=== PATIENT | female | born 1995 | race Caucasian/White ===

== ENCOUNTER 2024-06-15 16:35 | Outpatient (AMB) | payer OTHER, SELFPAY ==
[2024-06-15 16:42] VITALS: BP 94/64; PULSE 82; RESP 16; TEMP 36.5; O2SAT 97; BMI 29.7
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
--- OUTSIDE RECORDS SUMMARY | 2024-06-15 17:04 | XMS_ITS | Clinical Summary ---
Author Organization [facility] it Address [address] [place] [address] Care Team Providers Care Coding Advisor Name Role Phone Unavailable Primary Care Provider Unavailabl e Social History Tobacco Use Types Packs/Day Years Used Date Smoking Tobacco: Never Assessed Comments Unknown Sex and Gender Information Value Date Recorded Sex Assigned at Not on file Legal Sex Female 9:41 PM EST Gender Identity Not on file Sexual Orientation Not on file Plan of Treatment Health Maintenance Due Date Last Done Comments HPV Vaccines (1 - 3-dose series) 2012 DTaP,Tdap,and Td Vaccines (1 - Tdap) 2016 Hepatitis B Vaccines (1 of 3 - 19+ 3-dose series) 2016 Cervical Cancer Screening: P ap Smear 2018 COVID-19 Vaccine ( - 2023-2 5 season) 2023 Influenza Vaccine (#1) 2023 Depression Screening 12/22/2023 HIV Screening 12/22/2023 Hepatitis C Screening 12/22/2023 Social Influencers of Health Screening 12/22/2023 HIB Vaccines Aged Out No longer eligi ble based on patient's age to complete this topic Hepatitis A Vaccines Aged Out No long er eligible based on patient's age to complete this topic IPV Vaccines Aged Out No longer eligi ble based on patient's age to complete this topic MMR Vaccines Aged Out No longer eligi ble based on patient's age to complete this topic Meningococcal ACWY Vaccine Aged Out N o longer eligible based on patient's age to complete this topic Meningococcal B Vacine Aged Out No lo nger eligible based on patient's age to complete this topic Pneumococcal Vaccine: Pediat rics (0 to 5 Years) and At-Risk Patients (6 to 64 Years) Aged Out No longer eligible b ased on patient's age to complete this topic RSV Immunization Patients Un alice 20 months Aged Out No longer eligible b ased on patient's age to complete this topic Varicella Vaccines Aged Out No longer eligible based on patient's age to complete this topic
== END 2024-06-15 17:21 | disposition home or self-care (01) ==
DX: F41.9 Anxiety disorder, unspecified (principal); F41.0 Panic disorder [episodic paroxysmal anxiety]

== ENCOUNTER → 2024-06-15 16:35 | Outpatient (BNVA) | payer OTHER, SELFPAY | DX: F41.9 Anxiety disorder, unspecified (principal); F41.0 Panic disorder [episodic paroxysmal anxiety] | CPT/HCPCS: 96127; 99202 ==

== ENCOUNTER 2024-06-18 10:25 | Outpatient (REF) | payer OTHER, SELFPAY ==
--- OUTSIDE RECORDS SUMMARY | 2024-06-18 12:15 | XMS_ITS | Clinical Summary ---
Author Organization [facility] it Address [address] [place] [address] Care Team Providers Care Merchant Mariner Name Role Phone Unavailable Primary Care Provider [...] Vaccine ( - 2023-2 5 season) 2023 Depression Screening 12/22/2023 HIV Screening 12/22/2023 Hepatitis C Screening 12/22/2023 Social Influencers of Health Screening 12/22/2023 Influenza Vaccine (Season Ended) 2024 HIB Vaccines Aged Out No longer eligi [...]
[2024-06-18 13:05] LABS: MANUAL DIFF FLAG NO
[2024-06-18 13:20] LABS: Basophils Percent Auto 0.5 % (0-2); Eosinophils Absolute Auto 0.1 X10*3/uL (0.0-0.4); Hematocrit 39.9 % (37.0-47.0); Hemoglobin 13.6 g/dl (12.0-16.0); Imm Gran Abs Auto 0.04 X10*3/uL (0.00-0.03); Imm Gran Pct Auto 0.6 % (0.0-0.4); Lymphocytes Absolute Auto 1.9 X10*3/uL (1.2-4.9); Lymphocytes Percent Auto 29.7 % (20-40); Mean Corpuscular HGB Conc 34.1 g/dl (31.0-35.0); Mean Corpuscular Hemoglobin 27.8 pg (27.0-33.0); Mean Corpuscular Volume 81.6 fL (80.0-98.0); Monocytes Absolute Auto 0.6 X10*3/uL (0.1-1.2); Monocytes Percent Auto 8.8 % (2-11); Neutrophils Absolute Auto 3.7 x10*3/uL (2.0-8.3); Neutrophils Percent Auto 58.4 % (45-73); Platelet Count 175 X10*3/uL (160-400); Red Blood Count 4.89 X10*6/uL (4.20-5.50); Red Cell Distribution Width 13.4 % (11.0-16.0); White Blood Count 6.4 X10*3/uL (4.8-10.8)
[2024-06-18 13:24] LABS: Appearance Urine Turbid; Color Urine Yellow; Glucose Urine UA Negative (Negative); Leukocyte Esterase Urine Negative (Negative); Nitrite Urine Negative (Negative); PH 5.5 (5.0-9.0); Specific Gravity - Urine >= 1.030 (1.005-1.025); Urine Blood Negative (Negative); Urine Ketones Trace mg/dL (Negative); Urine Protein Negative (Neg-Trace)
[2024-06-18 14:11] LABS: Alanine Aminotransferase 14 U/L (0-31); Albumin Level 4.7 g/dL (3.5-5.0); Alkaline Phosphatase 65 U/L (39-117); Anion Gap 13 (12-20); Aspartate Amino Transferase 26 U/L (5-31); Bilirubin Total 0.6 mg/dL (0.0-1.0); Blood Urea Nitrogen 10 mg/dL (9-16); Calcium 9.7 mg/dL (8.4-10.2); Carbon Dioxide 25 mmol/L (22-29); Chloride 107 mmol/L (96-108); Cholesterol 159 mg/dL (<200); Estimated Glomerular Filt Rate > 60; Glucose Fasting 89 mg/dL (60-99); HDL Cholesterol 51 mg/dL (>40); LDL Cholesterol Calculated 94 mg/dL (<100); Sodium 141 mmol/L (135-145); TSH reflex Free T4 2.15 uIU/mL (0.32-4.0); Total Protein 7.7 g/dL (6.5-8.0); Triglycerides 72 mg/dL (<150); Vitamin D 25-OH Total 59.5 ng/mL (>30)
== END 2024-06-18 10:26 | disposition home or self-care (01) ==
LOC: HO.HMGCLDS 10:25
DX: Z00.00 Encounter for general adult medical examination without abnormal findings (principal)
CPT/HCPCS: 36415; 80053; 80061; 81003; 82306; 84443; 85025

== ENCOUNTER 2024-07-27 15:29 | Outpatient (AMB) | payer OTHER, SELFPAY ==
[2024-07-27 15:35] VITALS: BP 110/72; PULSE 89; RESP 16; TEMP 37.2; O2SAT 98; BMI 29.6
--- NOTE | 2024-07-27 15:35 | A.OFFPC_ITS ---
Vital Signs 07/27/24 15:35 Height 4 ft 11 in Weight 146 lb 9.6 oz BMI 29.6 BP 110/72 Blood Pressure Location Lt brachial Position Sitting Respiration 16 Pulse 89 Pulse Source Pulse Oximeter Temp 99.0 F Temp Source Oral Pulse Oximetry (%) 98 Oxygen Delivery Method Room Air Intake Visit Reasons: 6 week follow up Health Support Specialist Required: No Accompanied by: Self / Same As Patient Allergies No Known Allergies Allergy (Verified 07/27/24 16:02) Medication List - Last Reconciled 07/27/24 by MYA Kolb sertraline 25 mg PO DAILY Tobacco use date assessed: 07/27/24 Dental Screening Dental Screen Date: 07/27/24 Did you have a dental visit in the last 12 months?: Yes Did you have a dental problem in the last 6 months where you did not have access to dental care?: No Was dental information given to patient?: Patient has dentist HPI 6 week follow up HPI Details The patient is a 28-year-old female with the anxiety presenting six week follow up this started treatment. Last visit the patient was started on sertraline 25 mg daily. Patient reports that the medication has been helping her but she thinks that is too much that she has been increasingly tired and finds herself napping during the daytime. Patient also request topical cream for her ongoing acne. Otherwise from that she is feeling much better than she did before. Denies chest pain, shortness of breath, heart palpitation, or recent panic attacks. Recent labs were reviewed with the patient. [facility] Medical History Severe preeclampsia Surgical History Hx of section Family History Daughter Age: 2y 11m No problems noted. Mother No problems noted. Father No problems noted. Social History Household Members: Children Housing: Apartment Alcohol intake: never Patient Tobacco Use Status: Never used Tobacco e-Cigarette/Vaping Use: Never Used Second Hand Smoke Exposure: No service: No Current occupational status: employed Current occupation: Background checks Cognitive needs: No Hearing needs: No Vision needs: Yes (Glasses) Female Reproductive History Menstrual Age of Menarche: 12 Duration of menses: 3-5 days Date of last menstrual period: 07/06/24 Questionnaire PHQ-9 Over the last 2 weeks, how often have you been bothered by any of the following problems? 1. Little interest or pleasure in doing things: not at all 2. Feeling down, depressed, or hopeless: not at all 3. Trouble falling or staying asleep, or sleeping too much: nearly every day 4. Feeling tired or having little energy: nearly every day 5. Poor appetite or overeating: not at all 6. Feeling bad about yourself - or that you are a failure or have let yourself or your family down: not at all 7. Trouble concentrating on things, such as reading the newspaper or watching television: not at all 8. Moving or speaking so slowly that other people could have noticed. Or the opposite - being so fidgety or restless that you have been moving around a lot more than usual: not at all 9. Thoughts that you would be better off or of hurting yourself in some way: not at all Total score: 6 Depression Screening Interpretation: Positive Depression Screening Done: Yes Source: Developed by Drs. Edson Shipley, Radha Chi, Solo Gill and colleagues, with an educational santy from [employer]. Thrive Questionnaire Date Thrive assessed: 07/27/24 I am a: Patient What is your living situation today?: I have a steady place to live Within the past 12 months, did the food you bought not last and you didn't have the money to get more?: I choose not to answer this question Within the past 12 months, did you worry whether your food would run out before you got money to buy more?: I choose not to answer this question Do you have trouble paying for medicines?: I choose not to answer this question Do you have trouble getting transportation to medical appointments?: I choose not to answer this question Do you have trouble paying your heating and electricity bill?: I choose not to answer this question Do you have trouble taking care of your child, family member or friend?: No Do you have trouble with day-to-day activities such as bathing, preparing meals, shopping, managing finances, etc.?: No Are you currently unemployed and looking for a job?: No Are you interested in more education?: I choose not to answer this question Please select the resources that you would like help with: None Currently or been in a relationship where the following occur: I choose not to answer THRIVE Score: 0 AUDIT C Alcohol Use Questionnaire (AUDIT-C) 1. How often do you have a drink containing alcohol?: Never Total Score: 0 Score Reviewed/Action Taken: No JULISSA-7 AMB Questionnaire JULISSA-7 Date JULISSA - 7 assessed: 07/27/24 Feeling nervous, anxious, or on edge: 1 = Several days Not being able to stop or control worryin = Not at all Worrying too much about different things: 0 = Not at all Trouble relaxin = Not at all Being so restless that it is hard to sit still: 0 = Not at all Becoming easily annoyed or irritable: 0 = Not at all Feeling afraid as if something awful might happen: 0 = Not at all Total JULISSA-7 score (0-4 normal; 5-9 mild; 10-14 moderate; 15-21 severe): 1 Source: Developed by Drs. Edson Shipley, Radha Chi, Solo Gill and colleagues, with an educational santy from [employer]. Review of Systems Const Denies headache(s) Eyes Denies loss of vision ENT Denies vertigo, Denies dizziness, Denies headache(s) and Denies sore throat Card Denies chest pain, Denies leg edema and Denies lightheadedness Resp Denies cough, Denies hemoptysis and Denies wheezing Neuro Reports Abnormal speech present, Denies vertigo, Denies dizziness, Denies headache(s) and Denies loss of vision Psych Reports anxiety (Improved), Denies depression and Denies panic attacks Domingo/Lymph Denies easy bleeding and Denies easy bruising Aller/Immun Denies wheezing Physical exam (Primary Care) Vital Signs: Last Vital Signs Temp 99.0 F 07/27/24 15:35 Pulse 89 07/27/24 15:35 Resp 16 07/27/24 15:35 BP 110/72 07/27/24 15:35 Pulse Ox 98 07/27/24 15:35 Oxygen Delivery Method Room Air 07/27/24 15:35 BMI result Body Mass Index 29.6 Tobacco/Smoking Status: Tobacco use Status Tobacco use date assessed 07/27/24 07/27/24 15:45 Patient Tobacco Use Status Never used Tobacco 07/27/24 15:45 e-Cigarette/Vaping Use Never Used 07/27/24 15:45 PHQ-9: PHQ-9 Score PHQ-9: Total score 6 07/27/24 16:15 Depression Screening Interpretation: Positive Thrive Assessment: Date of Thrive Assessment Date Thrive assessed 07/27/24 07/27/24 15:45 Currently or been in a relationship where the following occur: I choose not to answer Const General: healthy appearing, no acute distress, alert and awake Nutritional Appearance: well nourished Orientation/consciousness: oriented to person, oriented to place and oriented to time HENMT Ears: TM's normal bilaterally General nose exam: Normal nasal mucous membranes and turbinates present Eyes Conjunctivae: conjunctivae normal Sclerae: sclerae normal Pupils: Equal, round and reactive pupils present Neck Neck: Yes no lymphadenopathy and Yes no JVD Thyroid: Thyroid normal Carotids: no bruits Resp Effort & Inspection: normal respiratory effort and not tachypneic Auscultation: no crackles, no rales, no rhonchi and no wheezes Cardio Rate: regular rate Rhythm: regular rhythm Heart sounds: no murmurs and normal S1 and S2 Skin General skin exam: dry skin Lesions: lesion noted (Small reddish papules mixed with Arora's on bilateral cheeks) Neuro General: oriented to person, oriented to place and oriented to time Cranial nerves: Yes Equal, round and reactive pupils present Speech: Abnormal speech present Psych Mental Status: mental status grossly normal Speech and movement: Normal speech and movement present Affect: normal affect Attitude: cooperative Thought process: Normal thought process present Results Reviewed Results Reviewed: Laboratory Tests 06/18/24 06/18/24 10:38 10:45 WBC 6.4 RBC 4.89 Hgb 13.6 Hct 39.9 MCV 81.6 MCH 27.8 MCHC 34.1 RDW 13.4 Plt Count 175 MPV 11.0 Sodium 141 Potassium 4.0 Chloride 107 Carbon Dioxide 25 Anion Gap 13 BUN 10 Creatinine 0.75 Estimated GFR > 60 Fasting Glucose 89 Calcium 9.7 Total Bilirubin 0.6 AST 26 ALT 14 Alkaline Phosphatase 65 Total Protein 7.7 Albumin 4.7 Triglycerides 72 Cholesterol 159 LDL Cholesterol, Calc 94 HDL Cholesterol 51 25-OH Vitamin D Total 59.5 TSH 2.15 Urine Color Yellow Urine Appearance Turbid Urine pH 5.5 Ur Specific [place] >= 1.030 H Urine Protein Negative Urine Glucose (UA) Negative Urine Ketones Trace Urine Blood Negative Urine Nitrite Negative Ur Leukocyte Esterase Negative Coding Level of Care Code Est Pt Level 3 (38012) Diagnoses Anxiety F41.9 Acne, unspecified acne type L70.9 Acne type: unspecified acne Time Spent (min) 29 Assessment & Plan Assessment & Plan (1) Anxiety: Code(s): F41.9 - Anxiety disorder, unspecified Category: Medical Plan: Reports that she is feeling much better but think that the dose is a little bit too strong for her. She was started on sertraline 25 mg daily. We will decrease this to sertraline 12.5 mg daily. Patient to return in 6 weeks for evaluation. (2) Acne: Code(s): L70.9 - Acne, unspecified Category: Medical Qualifiers: Acne type: unspecified acne Qualified Code(s): L70.9 - Acne, unspecified Plan: Benzoyl peroxide 2.5% topical b.i.d. ordered Medications: New benzoyl peroxide 2.5% 1 appl topical BID 227 grams 0RF Changed From sertraline 25 mg PO DAILY 30 tabs 2RF F41.9 - Anxiety disorder, unspecified, F41.0 - Panic disorder [episodic paroxysmal anxiety] To sertraline 12.5 mg (1/2 x 25 mg) PO DAILY 30 tabs 2RF F41.9 - Anxiety disorder, unspecified, F41.0 - Panic disorder [episodic paroxysmal anxiety]
== END 2024-07-27 16:16 | disposition home or self-care (01) ==
LOC: HO.HMCH 15:30
DX: F41.9 Anxiety disorder, unspecified (principal); L70.9 Acne, unspecified

== ENCOUNTER → 2024-07-27 15:29 | Outpatient (BNVA) | payer OTHER, SELFPAY | DX: F41.0 Panic disorder [episodic paroxysmal anxiety] (principal); L70.9 Acne, unspecified | CPT/HCPCS: 99212 ==

== ENCOUNTER → 2024-09-07 15:18 | Outpatient (BNVA) | payer OTHER, SELFPAY | DX: Z13.89 Encounter for screening for other disorder (principal) ==

== ENCOUNTER 2025-01-31 16:04 | Outpatient (AMB) | payer OTHER, SELFPAY ==
[2025-01-31 16:11] VITALS: BP 90/62; PULSE 75; RESP 18; O2SAT 98; BMI 30.7
--- NOTE | 2025-01-31 16:11 | A.OFFPC_ITS ---
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 Accompanied by: Self / Same As Patient Allergies No Known Allergies Allergy (Verified 02/01/25 01:12) Medication List - Last Reconciled 02/01/25 by MAY Kolb benzoyl peroxide 2.5% 1 appl topical BID phentermine 15 mg PO DAILY sertraline 25 mg PO DAILY 90 days Tobacco use date assessed: 01/31/25 Dental Screening Dental Screen Date: 01/31/25 Did you have a dental visit in the last 12 months?: Yes Did you have a dental problem in the last 6 months where you did not have access to dental care?: No Was dental information given to patient?: Patient has dentist HPI HPI Comments History of Present Illness Details The patient is a 29 year old individual presenting for medication management and to discuss weight loss. The patient is following up on anxiety medication, which was previously a full dose, then changed to a half dose, but has been resumed at the full dose due to increased anxiety. The increased dosage resulted in running out of the medication early and an inability to get it refilled at the pharmacy. The patient also inquired about weight loss medication, expressing concern about being overweight for the patient's height. The patient's current weight is 152 lbs. The patient reports efforts with diet and exercise have been unsuccessful since having a child. The patient denies any history of heart problems. Health Maintenance - The patient's reported weight is 152 l bs. - The patient is interested in medicatio n to assist with weight loss. - The patient confirms engaging in diet and exercise. Social History - Diet and Exercise: The patient reports managing diet and exercising. - Weight Management: The patient is conc erned about being overweight and has unsuccessfully attempted weight loss since childbirth. Results [facility] Medical History Severe preeclampsia Surgical History Hx of section Family History Daughter Age: 3y 5m No problems noted. Mother No problems noted. Father No problems noted. Social History Household Members: Children Housing: Apartment Alcohol intake: never Patient Tobacco Use Status: Never used Tobacco e-Cigarette/Vaping Use: Never Used Second Hand Smoke Exposure: No service: No Current occupational status: employed Current occupation: Background checks Cognitive needs: No Hearing needs: No Vision needs: Yes (Glasses) Female Reproductive History Menstrual Age of Menarche: 12 Questionnaire PHQ-9 Over the last 2 weeks, how often have you been bothered by any of the following problems? 1. Little interest or pleasure in doing things: not at all 2. Feeling down, depressed, or hopeless: not at all 3. Trouble falling or staying asleep, or sleeping too much: not at all 4. Feeling tired or having little energy: not at all 5. Poor appetite or overeating: not at all 6. Feeling bad about yourself - or that you are a failure or have let yourself or your family down: not at all 7. Trouble concentrating on things, such as reading the newspaper or watching television: not at all 8. Moving or speaking so slowly that other people could have noticed. Or the opposite - being so fidgety or restless that you have been moving around a lot more than usual: not at all 9. Thoughts that you would be better off or of hurting yourself in some way: not at all Total score: 0 Depression Screening Interpretation: Negative Depression Screening Done: Yes Source: Developed by Drs. Edson Shipley, Radha Chi, Solo Gill and colleagues, with an educational santy from [employer] Thrive Questionnaire Date Thrive assessed: 01/31/25 I am a: Patient What is your living situation today?: I have a steady place to live Within the past 12 months, did the food you bought not last and you didn't have the money to get more?: I choose not to answer this question Within the past 12 months, did you worry whether your food would run out before you got money to buy more?: I choose not to answer this question Do you have trouble paying for medicines?: I choose not to answer this question Do you have trouble getting transportation to medical appointments?: I choose not to answer this question Do you have trouble paying your heating and electricity bill?: I choose not to answer this question Do you have trouble taking care of your child, family member or friend?: No Do you have trouble with day-to-day activities such as bathing, preparing meals, shopping, managing finances, etc.?: No Are you currently unemployed and looking for a job?: No Are you interested in more education?: I choose not to answer this question Please select the resources that you would like help with: None Currently or been in a relationship where the following occur: I choose not to answer THRIVE Score: 0 AUDIT C Alcohol Use Questionnaire (AUDIT-C) 1. How often do you have a drink containing alcohol?: Never Total Score: 0 Score Reviewed/Action Taken: No JULISSA-7 AMB Questionnaire JULISSA-7 Date JULISSA - 7 assessed: 09/07/24 Feeling nervous, anxious, or on edge: 0 = Not at all Not being able to stop or control worryin = Not at all Worrying too much about different things: 0 = Not at all Trouble relaxin = Not at all Being so restless that it is hard to sit still: 0 = Not at all Becoming easily annoyed or irritable: 0 = Not at all Feeling afraid as if something awful might happen: 0 = Not at all Total JULISSA-7 score (0-4 normal; 5-9 mild; 10-14 moderate; 15-21 severe): 0 Source: Developed by Drs. Edson Shipley, Radha Chi, Solo Gill and colleagues, with an educational santy from [employer] Review of Systems Narrative Review of Systems - Psychiatric: Reports increased anxiety. - Constitutional: Reports being overweight. - Cardiovascular: Denies heart problems. - Respiratory: Reports coughing. Const Denies headache(s) Eyes Denies loss of vision ENT Denies vertigo, Denies dizziness, Denies headache(s) and Denies sore throat Card Denies chest pain, Denies leg edema and Denies lightheadedness Resp Denies cough, Denies hemoptysis and Denies wheezing Neuro Reports Abnormal speech present, Denies vertigo, Denies dizziness, Denies headache(s) and Denies loss of vision Psych Reports anxiety (Improved), Denies depression and Denies panic attacks Domingo/Lymph Denies easy bleeding and Denies easy bruising Aller/Immun Denies wheezing Physical exam (Primary Care) Vital Signs: Last Vital Signs Pulse 75 01/31/25 16:11 Resp 18 01/31/25 16:11 BP 90/62 01/31/25 16:11 Pulse Ox 98 01/31/25 16:11 Oxygen Delivery Method Room Air 01/31/25 16:11 BMI result Body Mass Index 30.7 Tobacco/Smoking Status: Tobacco use Status Tobacco use date assessed 01/31/25 01/31/25 16:19 Patient Tobacco Use Status Never used Tobacco 01/31/25 16:19 e-Cigarette/Vaping Use Never Used 01/31/25 16:19 PHQ-9: PHQ-9 Score PHQ-9: Total score 0 01/31/25 16:29 Depression Screening Interpretation: Negative Thrive Assessment: Date of Thrive Assessment Date Thrive assessed 01/31/25 01/31/25 16:19 Currently or been in a relationship where the following occur: I choose not to answer Narrative Physical Exam - Constitutional: Weight is 152 lbs. - Cardiovascular: Heart auscultation revealed normal findings. Const General: healthy appearing, no acute distress, alert and awake Nutritional Appearance: well nourished Orientation/consciousness: oriented to person, oriented to place and oriented to time HENMT Ears: TM's normal bilaterally General nose exam: Normal nasal mucous membranes and turbinates present Eyes Conjunctivae: conjunctivae normal Sclerae: sclerae normal Pupils: Equal, round and reactive pupils present Neck Neck: Yes no lymphadenopathy and Yes no JVD Thyroid: Thyroid normal Carotids: no bruits Resp Effort & Inspection: normal respiratory effort and not tachypneic Auscultation: no crackles, no rales, no rhonchi and no wheezes Cardio Rate: regular rate Rhythm: regular rhythm Heart sounds: no murmurs and normal S1 and S2 Skin General skin exam: dry skin Lesions: lesion noted (Small reddish papules mixed with Arora's on bilateral cheeks) Neuro General: oriented to person, oriented to place and oriented to time Cranial nerves: Yes Equal, round and reactive pupils present Speech: Abnormal speech present Psych Mental Status: mental status grossly normal Speech and movement: Normal speech and movement present Affect: normal affect Attitude: cooperative Thought process: Normal thought process present Coding Level of Care Code Est Pt Level 3 (40019) Diagnoses Anxiety F41.9 Obesity (BMI 30.0-34.9) E66.811 Time Spent (min) 29 Assessment & Plan Assessment & Plan (1) Anxiety: Code(s): F41.9 - Anxiety disorder, unspecified Category: Medical (2) Obesity (BMI 30.0-34.9): Code(s): E66.811 - Obesity, class 1 Category: Medical Plan Plan Patient was informed and verbally consented to the use of an ambient scribe for clinic note documentation during this visit. 1. Anxiety Disorder, Unspecified The patient experienced increased anxiety on a reduced medication dose and feels better after resuming the full dose. Due to the increased dosage, the patient ran out of medication early. A new prescription will be sent to the pharmacy to ensure continuity of care. The orders will be updated to reflect the change back to the full dose. 2. Obesity The patient expressed a desire for medical assistance with weight loss. GLP-1 agonists were discussed but are not a suitable option at this time due to insurance and availability issues. Phentermine was proposed as it is a stimulant that can help curb appetite. The patient denies any heart problems, making this a safer option. A prescription for a low dose of phentermine will be initiated for a three-month trial. It is a controlled substance and cannot have refills, requiring a new request for each supply. Discussion Notes I discussed the patient's anxiety medication, and we agreed to return to the full dose which was more effective. I will send a new prescription to the pharmacy and advised the patient to message or call me for future early refill needs to avoid lapses in treatment. We also discussed weight loss medication. I explained that while GLP-1 agonists are available, they are currently difficult to get approved without a diagnosis like diabetes. I proposed initiating a trial of phentermine, explaining that it is a stimulant used to curb appetite. After confirming the patient has no heart problems, we decided to proceed. I informed the patient that it is a controlled substance with no refills and must be taken one hour before a meal. We will start with a low dose for a three-month period and will require follow up for continued treatment. Patient Instructions - Continue taking your anxiety medication at the full dose, as it seems to be working better for you. - If you are about to run out of your medication early in the future, please call the office or send a message so we can arrange a refill. - You will be prescribed a new medication for weight loss called phentermine. - Take one pill of phentermine one hour before you eat. - This medication is a controlled substance, so you cannot get automatic refill s. You will need to contact me for a new prescription each time. - We will try this medication for a three-month period. - Please send a portal message when you need your next refill, and we can prepa re it for you. Medications: New phentermine must administer 2 hours after breakfast 15 mg PO DAILY 30 caps 0RF Changed From sertraline 12.5 mg (1/2 x 25 mg) PO DAILY 45 tabs 2RF 90 days F41.0 - Panic disorder [episodic paroxysmal anxiety], F41.9 - Anxiety disorder, unspecified To sertraline 25 mg PO DAILY 90 tabs 3RF 90 days F41.0 - Panic disorder [episodic paroxysmal anxiety], F41.9 - Anxiety disorder, unspecified
--- OUTSIDE RECORDS SUMMARY | 2025-01-31 20:53 | XMS_ITS | Clinical Summary ---
Author Organization [facility] ity Address [address] [place] [address] Care Team Providers Care Postal Support Employee Name Role Phone Unavailable Primary Care Provider Unavailabl e Social History Tobacco Use Types Packs/Day Years Used Date Smoking Tobacco: Never Assessed Comments Unknown Sex and Gender Information Value Date Recorded Sex Assigned at Not on file Legal Sex Female 9:41 PM EST Gender Identity Not on file Sexual Orientation Not on file Plan of Treatment Health Maintenance Due Date Last Done Comments DTaP,Tdap,and Td Vaccines (1 - Tdap) 2016 Hepatitis B Vaccines (1 of 3 - 19+ 3-dose series) 2016 Cervical Cancer Screening: P ap Smear 2018 HIV Screening 12/22/2023 Hepatitis C Screening 12/22/2023 Social Influencers of Health Screening 12/22/2023 Depression Screening 03/14/2024 COVID-19 Vaccine (1 - 2024-2 6 season) 2024 Influenza Vaccine (#1) 2024 HPV Vaccines (1 - 3-dose SCD M series) 2024 RSV Immunization Adult Patie nts (1 - 1-dose 75+ series) 2072 HIB Vaccines Aged Out No longer eligi [...] age to complete this topic Meningococcal B Vaccine Aged Out No l onger eligible based on patient's age to complete this topic Pneumococcal Vaccine: Pediat rics (0 to 5 Years) and At-Risk Patients (6 to 49 Years) Aged Out No longer eligible b ased on patient's age to complete this topic RSV Immunization Patients Un alice 20 months Aged Out No longer eligible b ased on patient's age to complete this topic Varicella Vaccines Aged Out No longer eligible based on patient's age to complete this topic
== END 2025-01-31 16:47 | disposition home or self-care (01) ==
LOC: HO.HMCH 16:05
DX: F41.9 Anxiety disorder, unspecified (principal); E66.811 Obesity, class 1; Z68.30 Body mass index [BMI] 30.0-30.9, adult

== ENCOUNTER → 2025-01-31 16:04 | Outpatient (BNVA) | payer OTHER, SELFPAY | DX: E66.811 Obesity, class 1 (principal); F41.9 Anxiety disorder, unspecified; Z68.30 Body mass index [BMI] 30.0-30.9, adult | CPT/HCPCS: 99212 ==

== ENCOUNTER 2025-03-01 08:43 | Outpatient (REF) | payer OTHER, SELFPAY ==
--- OUTSIDE RECORDS SUMMARY | 2025-03-01 08:56 | XMS_ITS | Clinical Summary ---
Author Organization [facility] ity Address [address] [place] [address] Care Team Providers Care Supervisor Asbestos Removal Name Role Phone Unavailable Primary Care Provider [...]
[2025-03-01 11:26] LABS: HBS Num1 3.12 mIU/mL (0-7.99); HBc Num1 0.17 S/CO (0.00-0.79); HBsAGNum1 0.43 S/CO (0.00-0.99); Hepatitis A Antibody IgM 0.22 Index (0-0.79); Hepatitis B Surface Antigen Negative (Negative); ~HepC Num1 0.09 S/CO (0.00-0.79); ~Hepatitis A Antibody IgM Nonreactive (Nonreactive); ~Hepatitis B Surface Antibody NONREACTIVE (Nonreactive); ~Hepatitis C Antibody Nonreactive (Nonreactive)
[2025-03-02 05:43] LABS: EBV-NA IgG Index <18.00 U/mL; EBV-VCA IgG Ab >750.00 U/mL; EBV-VCA IgM Ab <36.00 U/mL
[2025-03-04 16:48] LABS: TS Negative Control Passed; TS Panel A 1; TS Panel B 0; TS Positive Control Passed; TSpotTB Negative (Negative)
== END 2025-03-01 08:44 | disposition home or self-care (01) ==
LOC: HO.HMGCLDS 08:43
DX: Z01.84 Encounter for antibody response examination (principal); Z11.59 Encounter for screening for other viral diseases; Z11.1 Encounter for screening for respiratory tuberculosis; R76.89 Other specified abnormal immunological findings in serum
CPT/HCPCS: 36415; 85652; 86038; 86141; 86160; 86200; 86225; 86235; 86431; 86481; 86644; 86645; 86664; 86665; 86704; 86706; 86709; 86803; 87340